=== PATIENT | male | born 1970 | race Caucasian/White ===

== ENCOUNTER 2022-05-28 07:43 | Inpatient (IN) ==
--- NOTE | 2022-05-03 10:19 | PAT Medication Instructions ---
Medication Instructions Date of Service May 03, 2022 Home Medications bethanechol chloride 25 mg tablet 25 mg PO TID PRN buspirone 10 mg tablet 10 mg PO BID methocarbamol 500 mg tablet 500 mg PO TID tamsulosin 0.4 mg capsule 0.4 mg PO QAM PRN trazodone 100 mg tablet 100 mg PO HS DO NOT take the morning of surgery bethanechol chloride 25 mg tablet 25 mg PO TID PRN methocarbamol 500 mg tablet 500 mg PO TID Take morning of surgery With a small sip of water, OTHERWISE NOTHING TO EAT OR DRINK AFTER MIDNIGHT: buspirone 10 mg tablet 10 mg PO BID tamsulosin 0.4 mg capsule 0.4 mg PO QAM PRN(if needed) Take evening before surgery buspirone 10 mg tablet 10 mg PO BID bethanechol chloride 25 mg tablet 25 mg PO TID PRN(if needed) methocarbamol 500 mg tablet 500 mg PO TID trazodone 100 mg tablet 100 mg PO HS Other Notes If you have any questions please call us at [phone] or [phone] or [phone] or [phone]
--- NOTE | 2022-05-04 13:08 | Anesthesiology Consultation ---
Date of Service May 04, 2022 Assessment & Plan (1) Encounter for pre-operative examination: Chart Review Chart Review: Acceptable Risk for Surgery and Patient seen in Pre Admission Testing -Pt questioning if he will be getting spinal cyst removal at time of lumbar surgery - did contact surgeon's office who will check with surgeon and follow up with patient Per PAT appt on 05/04/22, patient denies any recent travel or large group activities. Pt is NOT vaccinated for Covid. Will leave to surgeon's discretion if preop Covid testing needed. Educated on importance of using Covid precautions one week prior to surgery Teaching & Discussion Pre-Anesthesia Teaching/Discussion Notes: Instructed NPO after midnight before surgery,except medications with 15 cc of water. Medication instructions provided according to the PAT guidelines. History Surgery Operation Date: 05/28/22 07:45 Proposed Procedures p L3-L4 Decompression and Fusion, L4-L5 Hardware Removal, Spinal Cord Monitoring - Addison Farias, DO Height/Weight Height: 5 ft 8 in Weight: 94.9 kg Allergies Allergy/AdvReac Type Severity Reaction Status Date / Time morphine Allergy Vomiting Verified 05/03/22 07:52 mushroom Allergy throat Verified 05/03/22 07:52 swelling Medications Home Medications Medication Instructions Recorded Confirmed Last Taken bethanechol chloride 25 mg tablet 25 mg PO TID PRN Urinary Retention 05/03/22 05/03/22 Unknown buspirone 10 mg tablet 10 mg PO BID 05/03/22 05/03/22 Unknown methocarbamol 500 mg tablet 500 mg PO TID 05/03/22 05/03/22 Unknown tamsulosin 0.4 mg capsule 0.4 mg PO QAM PRN Urinary Retention 05/03/22 05/03/22 Unknown trazodone 100 mg tablet 100 mg PO HS 05/03/22 05/03/22 Unknown Past Medical History Medical History Anxiety and depression Hx of migraines occasionally Hx of urinary disorder 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 Hx of colonoscopy Hx of hernia repair Past Anesthesia History No Hx of Anesthesia Complications (WITH EXCEPTION TO PONV ) and No Family Hx of Anesthesia Complications History of PONV No Hx of Motion Sickness and History of PONV Social History Smoking Status: Never smoker Do You Dip or Chew Tobacco: Yes (1 can per day) Hx Alcohol Use: Yes (hx-none for 1 year) Hx Substance Use: No substance use type: does not use Review of Systems Snoring- no witnessed apnea- no hx of sleep study Patient denies chest pain, shortness of breath, dyspnea on exertion, reflux, cough, wheezing, palpitations. No hx of seizures, stroke, NV. No hx of blood clots or blood transfusions Physical Exam Vital Signs VITALS BP 132/89 P 91 TEMP 98.3 SP02 97% RESP 16 Constitutional no acute distress ENMT Mouth: no TMJ clicking Thyromental Distance: > or= 3.5 Finger Breadths (3.5) Mallampati Class: II Mouth / Teeth: 1. Broken tooth Neck neck extension not limited Respiratory normal respiratory effort; no respiratory distress Auscultation: lungs clear to auscultation bilaterally; no wheezes Cardiovascular Rate/Rhythm: regular rate and regular rhythm Heart Sounds: no murmur Vessels: no carotid bruit Musculoskeletal Spine: no pain with cervical ROM Extremities: extremities normal to inspection Psychiatric Orientation: alert Lab Results Anesthesia Preop Results Results Anesthesia Widget: WBC 7.58 K/ul (4.8-10.8) 05/04/22 Hgb 15.8 g/dl (14.0-18.0) 05/04/22 Hct 46.5 % (40.1-51.0) 05/04/22 Plt 291 K/uL (130-400) 05/04/22 Na 139 mmol/L (136-145) 05/04/22 K 3.8 mmol/L (3.5-5.1) 05/04/22 Cl 105 mmol/L (98-107) 05/04/22 CO2 28 mmol/L (21-32) 05/04/22 BUN 5 mg/dl (6-23) L 05/04/22 Creat 1.06 mg/dl (0.6-1.4) 05/04/22 Glucose Level 141 mg/dl (70-99(Fasting)) H 05/04/22 PT 10.5 Seconds (9.0-12.0) 05/04/22 PTT 24.5 Seconds (21.0-31.0) 05/04/22 INR 1.0 (0.9-1.1) 05/04/22 Urine Color Yellow 05/04/22 Urine Appearance Cloudy (Clear) A 05/04/22 Urine pH 7.0 (4.5-7.5) 05/04/22 Urine Specific Elk 1.011 (1.000-1.030) 05/04/22 Urine Protein Negative (Negative) 05/04/22 Urine Glucose (UA) Negative (Negative) 05/04/22 Urine Ketones Negative (Negative) 05/04/22 Urine Blood Negative (Negative) 05/04/22 Urine Nitrite Negative (Negative) 05/04/22 Urine Bilirubin Negative (Negative) 05/04/22 Urine Urobilinogen Negative (Negative) 05/04/22 Urine Leukocyte Esterase 3+ (Negative) H 05/04/22 Urine WBC (Auto) >30 /hpf (0-5) H 05/04/22 Urine RBC (Auto) 0-4 /hpf (0-4) 05/04/22 Urine Hyaline Casts (Auto) 5-10 /lpf (0-5) H 05/04/22 Urine Epithelial Cells (Auto) 0-5 /lpf (0-5) 05/04/22 Urine Bacteria (Auto) 3+ (Negative) H 05/04/22 Blood Type A Positive 05/04/22 Antibody Screen NEGATIVE 05/04/22 Testing Laboratory Results Surgeon's office informed of UA results- will leave to surgeon's discretion how to proceed Electrocardiogram Date: 05/04/22 Findings: + NSR @ (77bpm ) Normal EKG per cardio. Chest X-Ray Date: 05/04/22 Findings: + NAD COVID-19 Risk Screen Screening Information COVID-19 Screen Date: 05/04/22 Exposure 21 Days Family/Household +COVID Last 21 Days: No Exposure 10 Days Any COVID Exposure Last 10 Days: No Symptoms Last 10 Days Experienced COVID Sx Last 10 Days: No + COVID 0-90 Days COVID + in Last 0-90 Days: No Risk Plan COVID Risk Plan: No Risk Identified Patient Education COVID Preop Screening Education Complete: Yes
--- NOTE | 2022-05-27 11:58 | History & Physical Report ---
Date of Service May 27, 2022 Assessment & Plan (1) Neurogenic claudication due to lumbar spinal stenosis: Plan: due to weakness and severe stenosis recommending urgent decompression fusion L3- 4 with hardware removal L4-5 History of Present Illness Chief Complaint: back and leg pain Primary Care Provider: NO PCP 52 male severe bilateral leg pain with inablility to ambulate Allergies Allergy/AdvReac Type Severity Reaction Status Date / Time morphine Allergy Vomiting Verified 05/03/22 07:52 mushroom Allergy throat Verified 05/03/22 07:52 swelling Home Medications Medication Instructions Recorded Confirmed Type bethanechol chloride 25 mg tablet 25 mg PO TID PRN Urinary Retention 05/03/22 05/03/22 History buspirone 10 mg tablet 10 mg PO BID 05/03/22 05/03/22 History methocarbamol 500 mg tablet 500 mg PO TID 05/03/22 05/03/22 History tamsulosin 0.4 mg capsule 0.4 mg PO QAM PRN Urinary Retention 05/03/22 05/03/22 History trazodone 100 mg tablet 100 mg PO HS 05/03/22 05/03/22 History Past Med/Surg History Medical History Anxiety and depression Hx of migraines occasionally Hx of urinary disorder 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 Hx of colonoscopy Hx of hernia repair Social History Smoking Status: Never smoker Second Hand Exposure: Yes (as a child); Hx Alcohol Use: Yes (hx-none for 1 year) Hx Substance Use: No Preferred Language: Armenian Communication Ability: Effective Assembler Insulator Required: No Beliefs That Will Affect Care: None Current Living Situation: Spouse Feels Safe at Home: Yes Assistive Devices: Glasses Physical Exam Physical Exam: patient cannot stand for exam due to pain has weakness in both quads and with dorsiflexion 3+/5 sensory deficiits
[~2022-05-28 07:43] MED LIST: ACETAMINOPHEN 500 MG TAB PO SCH; CeleBREX 200 MG CAP PO SCH; GABAPENTIN 900 MG DOSE PO SCH; LR 15ML/HR IV SCH; ceFAZolin 2000MG 2,000 MG/15 ML SYR IV SCH
[2022-05-28] MEDS ORDERED: fentaNYL citrate 100 MCG/2 ML VIAL ONE (08:49)
[2022-05-28] MEDS ORDERED: MIDAZOLAM HCL 1 MG/ML 2ML VIAL ONE (08:49)
[2022-05-28] MEDS ORDERED: ePHEDrine sulfate 50 MG/ML AMP IV PRN (08:59)
[2022-05-28] MEDS ORDERED: ATROPINE SULFATE 0.1 MG/ML 10ML SYR IV PRN (08:59)
[2022-05-28] MEDS ORDERED: ONDANSETRON INJ 2 MG/ML 2 ML VIAL IV PRN ×2 (08:59→13:32)
[2022-05-28] MEDS ORDERED: HYDROmorphone INJ 1 MG/ML SYRINGE IV PRN (08:59)
--- NOTE | 2022-05-28 09:06 | History & Physical Bridge Note ---
Date of Service May 28, 2022 History & Physical Bridge Note I have examined the patient, reviewed the History & Physical and in the interval since the performance of the History & Physical I have noted the following changes of clinical significance: no changes noted
--- NOTE | 2022-05-28 09:07 | History & Physical Report ---
Date of Service May 28, 2022 Assessment & Plan (1) Neurogenic claudication due to lumbar spinal stenosis: History of Present Illness Chief Complaint: Back and leg pain Primary Care Provider: NO PCP This is a 52-year-old male presents with chronic persistent back and leg pain after failing course of nonoperative care is here for surgical invention. Allerg ies Allergy/AdvReac Type Severity Reaction Status Date / Time morphine Allergy Vomiting Verified 05/28/22 08:10 mushroom Allergy throat Verified 05/28/22 08:10 swelling Home Medications Medication Instructions Recorded Confirmed Type bethanechol chloride 25 mg tablet 25 mg PO TID PRN Urinary Retention 05/03/22 05/28/22 History buspirone 10 mg tablet 10 mg PO BID 05/03/22 05/28/22 History methocarbamol 500 mg tablet 500 mg PO TID 05/03/22 05/28/22 History tamsulosin 0.4 mg capsule 0.4 mg PO QAM PRN Urinary Retention 05/03/22 05/28/22 History trazodone 100 mg tablet 100 mg PO HS 05/03/22 05/28/22 History Past Med/Surg History Medical History Anxiety and depression Hx of migraines occasionally Hx of urinary disorder 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 Hx of colonoscopy Hx of hernia repair Social History Smoking Status: Never smoker Second Hand Exposure: Yes (as a child); Do You Dip or Chew Tobacco: Yes (1 can per day); Tobacco Cessation Education Requested by Patient: No Hx Alcohol Use: Yes (hx-none for 1 year) Hx Substance Use: No Preferred Language: Burundian Communication Ability: Effective Relationship Assoc Required: No Beliefs That Will Affect Care: None Current Living Situation: Spouse Other Information That Helps Us Care for You: No Feels Safe at Home: Yes Safety Concerns: Feels Safe At This Time Assistive Devices: Glasses Assistive Devices Comment: reading glasses Physical Exam Physical Exam: Patient is alert and oriented Heart regular rhythm Lungs clear Results & Data Results & Data ([facility]) Vital Signs (Past 12 Hours) Vital Signs Temp Pulse Resp BP Pulse Ox O2 Del Method 05/28/22 08:14 36.6 C 79 20 130/95 98 Room Air
[2022-05-28] MEDS ORDERED: ONDANSETRON INJ 2 MG/ML 2 ML VIAL ONE (09:14)
[2022-05-28] MEDS ORDERED: LIDOCAINE 2% MPF LOCAL 5 ML VIAL INFIL ONE (09:14)
[2022-05-28] MEDS ORDERED: PROPOFOL IV EMULSION 10 MG/ML 20 ML VIAL IV ONE (09:14)
[2022-05-28] MEDS ORDERED: DEXAMETHASONE SOD INJ 4 MG/ML VIAL ONE (09:14)
[2022-05-28] MEDS ORDERED: ROCURONIUM BROMIDE 10 MG/ML 5 ML VIAL IV ONE (09:14)
[2022-05-28] MEDS ORDERED: NEOSTIGMINE METHYLSULFATE 1 MG/ML 10ML VIAL ONE (09:15)
[2022-05-28] MEDS ORDERED: GLYCOPYRROLATE 0.2 MG/ML VIAL ONE (09:15)
[2022-05-28] MEDS ORDERED: BUPIVACAINE/EPINEPHRINE 0.25% 1:200,000 30 ML VIAL ONE (09:26)
[2022-05-28] MEDS ORDERED: ceFAZolin 330 MG/ML 1 GM VIAL ONE (09:27)
[2022-05-28] MEDS ORDERED: HYDROmorphone INJ 2 MG/ML SYR/VIAL ONE ×2 (10:06→10:12)
[2022-05-28] MEDS ORDERED: FLOSEAL HEMOSTATIC MATRIX 10ML TOP ONE (10:26)
[2022-05-28] MEDS ORDERED: ePHEDrine sulfate 50 MG/ML SYR ONE (11:01)
--- NOTE | 2022-05-28 11:42 | Operative Report ---
Post Operative Report Pre & Post Diagnosis Operation Date: 05/28/22 09:35 Pre-Op Diagnosis: Lumbar spinal stenosis with neurogenic claudication Post-Op Diagnosis: Same I identified the patient and participated in the time-out.: Yes Procedure Operation Date: 05/28/22 09:35 Actual Procedures #1 removal of posterior instrumentation L4-5 L5-S1. #2 exploration of fusion L4-5 L5-S1. #3 lumbar decompression with bilateral medial facetectomies and foraminotomies L2-L3 L3-L4. #4 posterior spinal fusion L3-L4. #5 placement posterior instrumentation L3-L5. #6 interbody fusion L3-L4. 7 placement of Spira 14 x 26 mm cage at L3-L4. 8 placement locally harvested morselized autograft and posterior gutters per #9 placement of I factor model V toss interbody space and posterior lateral gutters. Surgeon Addison Farias, Vegetable Tester None Estimated Blood Loss 100 Findings See Below The patient is 5 foot 8 weighing over 94 kg with a BMI in excess of 31. Patient's body habitus did contribute to significant technical difficulty required deeper retractors and longer instruments in order to perform his procedure. This at least 50% increased operative time. Specimens None Indications This is a 52-year-old male who presents above-mentioned diagnosis after failed course of nonoperative care is here for surgical invention. Description of Procedure Patient is met with identified informed consent obtained. Patient was then taken to the operative suite underwent a patient placed in a prone position the Ocate table top Black frame. All bony prominences well-padded eyes inspected to ensure no external pressure placed monitor at this point the lumbar spine was prepped and draped in a sterile fashion. Sharp dissection with the assistance of bradycardia was performed down to and exposing the lamina transverse processes of L3 and instrumentation at L4-L5 and S1 levels bilaterally. Then proceeded with the hardware bilaterally explore the fusion mass noting it to be mature and intact. Then performed a complete laminectomy of L3 partial negative L2 including bilateral medial facetectomies foraminotomies addressing severe spinal stenosis. Pedicle screws then placed at L3 L4-5 bilaterally with assistance of fluoroscopy and the properly sized la placed. By way of entrance foraminal approach and left pleat discectomy of L3-L4 was performed endplates curetted to subcortical bleeding bone and a 14 x 26 mm spiral cage with I factor tapped in position. The rods then locked in final position bilaterally. The transverse processes of L3-L4 burred to subcortically bone. I factor model V toss and locally harvested morselized autograft was placed in the posterior gutters. 15 round SHELLEY drain inserted. The incision was then closed with 1 Vicryl the fascia 2-0 Vicryl subcutaneously and 4 Monocryl for final skin closure. Steri-Strips dressings placed. Patient waken taken to PACU stable condition. Please note spinal cord monitoring utilized at the procedure no changes noted. I attest to the content of the Intraoperative Record and any orders documented therein. Any exceptions are noted below.
--- NOTE | 2022-05-28 11:57 | Fluoroscopy Report ---
FL lumbar spine 2-3V CLINICAL HISTORY: L3-L4 DECOMPRESSION/ FUSION COMPARISON STUDY: None. FLUOROSCOPY TIME: 10 seconds. FINDINGS: 2 fluoroscopic spot images of the lumbar spine demonstrate posterior decompression fusion f rom L3 through L5 with pedicle screws and rods. Hardware appears intact.. IMPRESSION: Fluoroscopic assistance provided for L3-L5 posterior decompression and fusion. ACT 112: Negative or not required by law. Electronically signed by: Abdulkadir Quijano M.D. 05/28/2022 11:55 AM
[2022-05-28] MEDS: fentaNYL citrate 100 MCG/2 ML VIAL IV PRN ×4 (12:09→12:24)
--- NOTE | 2022-05-28 12:31 | Anesthesiology Progress Note ---
Date of Service May 28, 2022 Anesthesia Post Procedure Vital Signs Vital Signs: Temp Pulse Pulse Resp BP Pulse Ox O2 Del Method 05/28/22 12:25 85 11 L 127/89 98 Nasal Cannula 05/28/22 12:15 67 14 129/87 99 Nasal Cannula 05/28/22 12:05 81 20 146/92 H 98 Nasal Cannula 05/28/22 11:55 98 H 17 129/97 100 Oxymask 05/28/22 11:48 36.1 C L 96 H 19 148/87 H 99 Oxymask 05/28/22 08:14 36.6 C 79 20 130/95 98 Room Air O2 Flow Rate 05/28/22 12:25 2 05/28/22 12:15 2 05/28/22 12:05 2 05/28/22 11:55 10 05/28/22 11:48 10 05/28/22 08:14 Pain Intensity Bilateral Back: Pain Intensity: 5 Back: Pain Intensity: 5 Transfer of Care Handoff Completed per policy Notes Mental Status: alert / awake / arousable and participated in evaluation Patient Amnestic to Procedure: Yes Nausea / Vomiting: adequately controlled Pain: adequately controlled Airway Patency, RR, SpO2: stable & adequate BP & HR: stable & adequate Hydration State: stable & adequate Anesthetic Complications: no major complications apparent and Pt Satisfied with anesthetic care
[2022-05-28] MEDS ORDERED: MAGNESIUM HYDROXIDE SUSP 30 ML UDC PO PRN (13:32)
[2022-05-28] MEDS ORDERED: HYDROmorphone INJ 0.5 MG/0.5 ML SYR IV PRN (13:32)
[2022-05-28] MEDS ORDERED: FAMOTIDINE 20 MG TAB PO PRN (13:32)
[2022-05-28] MEDS ORDERED: TAMSULOSIN HCL 0.4 MG CAP PO PRN (13:32)
[2022-05-28] MEDS ORDERED: ACETAMINOPHEN 500 MG TAB PO PRN (13:32)
[2022-05-28] MEDS ORDERED: PROMETHAZINE HCL 12.5 MG in SODIUM CHLORIDE 0.9% 50 ML IV PRN (13:32)
[2022-05-28] MEDS ORDERED: ALUMINUM/MAGNESIUM SUSP 30 ML UDC PO PRN (13:32)
[2022-05-28] MEDS ORDERED: METOCLOPRAMIDE HCL INJ 5 MG/ML 2 ML VIAL IV PRN (13:32)
[2022-05-28] MEDS ORDERED: DO NOT ADMINISTER FLU VACCINE PRN (13:32)
[2022-05-28] MEDS ORDERED: bisacodyL 10 MG SUPP PR PRN (13:32)
[2022-05-28] MEDS ORDERED: SOD PHOSPHATE/SOD BIPHOSPHATE ENEMA 132 ML BTL PR PRN (13:32)
[2022-05-28] MEDS ORDERED: NALOXONE HCL 0.4 MG/1 ML VIAL/CARP IV PRN (13:32)
[2022-05-28] MEDS ORDERED: diphenhydrAMINE Capsule 25 MG CAP PO PRN (13:32)
[2022-05-28] MEDS ORDERED: LORazepam 0.5 MG TAB PO PRN (13:32)
[2022-05-28] MEDS ORDERED: LORazepam 2 MG/1 ML VIAL IV PRN (13:32)
[2022-05-28] MEDS ORDERED: hydrOXYzine HCl 25 MG TAB PO PRN (13:32)
[2022-05-28] MEDS ORDERED: ONDANSETRON 4 MG OD TAB PO PRN (13:32)
[2022-05-28] MEDS ORDERED: DO NOT ADMINISTER PNEUMOCOCCAL VACCINE PRN (13:32)
[2022-05-28] MEDS ORDERED: ACETAMINOPHEN 1,000 MG/100 ML VIAL IV PRN (13:32)
[2022-05-28] MEDS ORDERED: BETHANECHOL CHL 25 MG TAB PO PRN (13:32)
[2022-05-28] MEDS: LACTATED RINGER'S 1,000 ML IV SCH ×2 (14:26→20:44)
[2022-05-28] MEDS: HYDROmorphone INJ 1 MG/ML SYRINGE IV PRN ×2 (14:27→20:05)
--- NOTE | 2022-05-28 14:42 | Consultation ---
Date of Consultation May 28, 2022 Assessment & Plan (1) Neurogenic claudication due to lumbar spinal stenosis: (2) Status post lumbar surgery: Post op day# 0 S/P removal instrumentation, decompression and fusion L2-L4 by Dr Farias EBMeena#100ml -pain management per ortho -wound management per ortho -PT/OT as appropriate -DVT prophylaxis per ortho -incentive spirometry -monitor H&H for acute blood loss anemia; pre-op Hgb: 15 (3) Anxiety and depression: (4) Insomnia: -Continue buspirone, trazodone (5) Hx of urinary disorder: History urinary retention. Follows with urology -Continue tamsulosin, bethanechol DVT Prophylaxis -SCDs per ortho Disposition per primary service Follows with Dr Mitchell in [place] for routine care Pt was seen and care coordinated with Dr Skaggs. See addendum Thank you for this consultation. We will follow the patient with you during their hospital stay. You can reach a member of the [facility]ist Team 13/12 via [employer] I spent total of 45 minutes of reviewing notes, labs, images, medications, coord inating, documenting, and providing care for this patient excluding time spent in the performance of separately Supervising Physician Co-Signing Physician Notes Attending addendum: The patient was seen and examined in medical floor Is a status post L3-L4 decompression and fusion Remains drowsy secondary to use of anesthetics and pain medication Minimal pain at back with numbness persisting in the left lower leg On examination Hemodynamically stable but remains very drowsy Chest-clear to auscultate bilaterally Heart-S1, S2 regular Abdomen-benign Extremities-negative for any edema His labs, EKG and imaging studies reviewed Status post lumbar surgery with stable medical conditions as above Agree with assessment and plan as outlined above by MABEL Gruber Dr History of Present Illness Requesting Physician: Dr Farias Reason for Consultation: Dr Farias Attending Physician: Addison Farias DO History of Present Illness Patient is 52 y/o M with PMH chronic back pain, insomnia, HLD seen in medical consultation s/p removal instrumentation, decompression and fusion L2-L4 today by Dr Farias. Post op patient reports some low back pain and was just given pain medication. Reports left leg paresthesias. Denies nausea, vomiting, CP, SOB. Tolerated liquids for lunch. Last BM yesterday. Has Ca catheter in place. Denies fever/chills, diaphoresis, BUCKNER, dizziness, vision changes, neck pain, CP, SOB, palpitations, cough, sore throat, choking, rhinorrhea, abdominal pain, extremity edema, rashes, dysuria, hematuria. Allergies Allergy/AdvReac Type Severity Reaction Status Date / Time morphine Allergy Vomiting Verified 05/28/22 08:10 mushroom Allergy throat Verified 05/28/22 08:10 swelling Home Medications Medication Instructions Recorded Confirmed Type bethanechol chloride 25 mg tablet 25 mg PO TID PRN Urinary Retention 05/03/22 05/28/22 History buspirone 10 mg tablet 10 mg PO BID 05/03/22 05/28/22 History methocarbamol 500 mg tablet 500 mg PO TID 05/03/22 05/28/22 History tamsulosin 0.4 mg capsule 0.4 mg PO QAM PRN Urinary Retention 05/03/22 05/28/22 History trazodone 100 mg tablet 100 mg PO HS 05/03/22 05/28/22 History Patient History Medical History Anxiety and depression Hx of migraines occasionally Hx of urinary disorder 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 Hx of colonoscopy Hx of hernia repair Family History (Updated 05/28/22 @ 15:03 by Balbina Rossi PA-C) Other Coronary heart disease Dyslipidemia Hypertension Social History (Updated 05/28/22 @ 15:18 by Balbina Rossi PA-C) Smoking Status: Never smoker Second Hand Exposure: Yes (as a child); Do You Dip or Chew Tobacco: Yes (1 can per day); Tobacco Cessation Education Requested by Patient: No Hx Alcohol Use: Yes (hx-none for 1 year) Hx Substance Use: No Preferred Language: Ugandan Communication Ability: Effective Case Manager Required: No Beliefs That Will Affect Care: None Current Living Situation: Spouse Other Information That Helps Us Care for You: No Feels Safe at Home: Yes Safety Concerns: Feels Safe At This Time Assistive Devices: Glasses Assistive Devices Comment: reading glasses Review of Systems Review of Systems: All systems reviewed & are unremarkable except as noted in HPI & below Physical Exam Physical Exam: General: no distress, WDWN Head: normocephalic, atraumatic Eyes: conjunctiva non-injected, anicteric ENT: normal inspection external ears, nose, mucous membranes moist Neck: supple, trachea midline Lungs: clear, no respiratory distress, no wheezing/rhonchi/rales CV: RRR, no pretibial edema Abd: normal BS, soft, non-tender Back: +SHELLEY drain with serosanguineous drainage Ext: no cyanosis, no calf tenderness; able to move toes, unable to pedal pushes and pulls at this time, sensation to light touch intact, distal pulses intact Neuro: A&O x 3, no focal deficits noted, normal affect Skin: warm, dry Results & Data ([facility]) Vital Signs (Past 12 Hours) Vital Signs Temp Pulse Pulse Resp BP Pulse Ox O2 Del Method 05/28/22 14:28 36.5 C 107 H 18 122/81 93 Room Air 05/28/22 13:18 36.5 C 78 130/79 93 Room Air 05/28/22 12:50 78 15 129/72 97 Nasal Cannula 05/28/22 12:35 36.4 C L 67 12 131/80 97 Nasal Cannula 05/28/22 12:25 85 11 L 127/89 98 Nasal Cannula 05/28/22 12:15 67 14 129/87 99 Nasal Cannula 05/28/22 12:05 81 20 146/92 H 98 Nasal Cannula 05/28/22 11:55 98 H 17 129/97 100 Oxymask 05/28/22 11:48 36.1 C L 96 H 19 148/87 H 99 Oxymask 05/28/22 08:14 36.6 C 79 20 130/95 98 Room Air O2 Flow Rate 05/28/22 14:28 05/28/22 13:18 05/28/22 12:50 2 05/28/22 12:35 2 05/28/22 12:25 2 05/28/22 12:15 2 05/28/22 12:05 2 05/28/22 11:55 10 05/28/22 11:48 10 05/28/22 08:14
[2022-05-28] MEDS: METHOCARBAMOL 500 MG TABLET PO SCH ×2 (14:59→20:41)
[2022-05-28] MEDS: oxyCODONE HCL IR 5 MG TAB (IMMEDIATE RELEASE) PO PRN ×2 (17:38→23:28)
[2022-05-28] MEDS: ceFAZolin 2000MG 2,000 MG/15 ML SYR IV SCH (17:39)
[2022-05-28] MEDS: traMADol HCL 50 MG TABLET PO PRN (20:04)
[2022-05-28] MEDS: busPIRone 5 MG TAB PO SCH (20:40)
[2022-05-28] MEDS: DOCUSATE SODIUM/SENNA 50/8.6MG TAB PO SCH (20:42)
[2022-05-28] MEDS: traZODone HCL 100 MG TAB PO SCH (20:42)
[2022-05-29] MEDS: ceFAZolin 2000MG 2,000 MG/15 ML SYR IV SCH (01:59)
[2022-05-29] MEDS: oxyCODONE HCL IR 5 MG TAB (IMMEDIATE RELEASE) PO PRN ×4 (02:58→20:30)
[2022-05-29] MEDS: LACTATED RINGER'S 1,000 ML IV SCH ×4 (03:40→22:09)
[2022-05-29] MEDS: traMADol HCL 50 MG TABLET PO PRN (04:21)
[2022-05-29] MEDS: POLYETHYLENE (MIRALAX) 17 GM PACK PO SCH ×4 (05:34→23:38)
[2022-05-29 06:01] LABS: Basophils # (auto) 0.06 K/uL (0-0.2); Basophils % (auto) 0.6 %; Eosinophils # (auto) 0.42 K/uL (0-0.50); Eosinophils % (auto) 4.5 %; Hematocrit (blood only) 35.2 % (40.1-51.0); Hemoglobin 12.3 g/dl (14.0-18.0); Immature Granulocytes # (auto) 0.02 K/uL (0.00-0.02); Immature Granulocytes % (auto) 0.2 %; Lymphocytes # (auto) 2.24 K/uL (1.2-3.4); Lymphocytes % (auto) 24.1 %; Mean Corpuscular Hemoglobin 31.5 pg (25.0-34.0); Mean Corpuscular Hgb Conc 34.9 g/dL (32.0-36.0); Monocytes # (auto) 0.84 K/uL (0.24-0.82); Neutrophils # (auto) 5.72 K/uL (1.4-6.5); Neutrophils % (auto) 61.6 %; Platelet Count 215 K/uL (130-400); RDW Coefficient of Variation 13.2 % (11.5-14.5); RDW Standard Deviation 43.5 fL (36.4-46.3); Red Blood Count 3.91 M/uL (4.63-6.08)
[2022-05-29 06:25] LABS: BUN Creatinine Ratio 7.8 (10-20); Calcium 7.4 mg/dl (8.5-10.1); Creatinine Clr Calc Pharmacy 82.7 ml/min; Est GFR (African American) 83.7 ml/min; Est GFR (Non-African American) 72.3 ml/min; Potassium 3.5 mmol/L (3.5-5.1)
[2022-05-29] MEDS: HYDROmorphone INJ 1 MG/ML SYRINGE IV PRN ×4 (08:08→22:08)
--- NOTE | 2022-05-29 08:20 | Orthopedic Progress Note ---
Date of Service May 29, 2022 Assessment & Plan (1) Neurogenic claudication due to lumbar spinal stenosis: Plan: At this time initiate physical therapy monitor his SHELLEY operatively discharge home in the next few days. Admission and Anticipated Discharge Date Admission Date: May 28, 2022 Subjective Back pain controlled leg pain improved Physical Exam Physical Exam: Patient is constricted testing. Peers comfortable. Results & Data ([facility]) Vital Signs (Past 12 Hours) Vital Signs Temp Pulse Resp BP Pulse Ox O2 Del Method 05/29/22 03:24 36.6 C 75 18 100/66 96 Room Air 05/28/22 22:55 36.5 C 67 15 100/59 L 96 Room Air
[2022-05-29] MEDS: busPIRone 5 MG TAB PO SCH ×2 (09:08→20:32)
[2022-05-29] MEDS: TAMSULOSIN HCL 0.4 MG CAP PO SCH (09:08)
[2022-05-29] MEDS: METHOCARBAMOL 500 MG TABLET PO SCH ×3 (09:09→20:31)
[2022-05-29] MEDS: dexAMETHasone 6 MG in SYRINGE 0 ML IV SCH (09:09)
--- NOTE | 2022-05-29 15:43 | Hospitalist Progress Note ---
Date of Service May 29, 2022 Assessment & Plan (1) Neurogenic claudication due to lumbar spinal stenosis: (2) Status post lumbar surgery: Plan: Likely acute blood loss anemia/postoperative Post op day# 1 S/P removal instrumentation, decompression and fusion L2-L4 by Dr Farias EB#100ml -pain management per ortho -wound management per ortho -PT/OT as appropriate -DVT prophylaxis per ortho -incentive spirometry -monitor H&H for acute blood loss anemia; pre-op Hgb: 15, postop hemoglobin 12.5. H&H in AM. (3) Anxiety and depression: (4) Insomnia: Plan: -Continue buspirone, trazodone (5) Hx of urinary disorder: Plan: History urinary retention. Follows with urology -Continue tamsulosin, bethanechol DVT Prophylaxis -SCDs per ortho Disposition per primary service Follows with Dr Mitchell in [place] for routine care Thank you for this consultation. We will follow the patient with you during their hospital stay. You can reach a [facility]12 via [employer] Admission and Anticipated Discharge Date Admission Date: May 28, 2022 Subjective Patient seen and examined at bedside as a follow-up of neurogenic claudication due to lumbar spinal stenosis status post lumbar surgery by Dr. Farias. Patient was lying in bed, on room air, NAD, reports no new acute event overnight, reports eating okay, no bowel movement yet, reports moving gas, reports some low back pain at operative site, denies headache or dizziness or chest pain or sore throat or other review of symptoms. Physical Exam Physical Exam: GENERAL: Alert and oriented x3. NAD, on RA. HEENT: No pallor, no icterus. Pupils equal, round and reactive to light. Oral mucosa moist. NECK: No JVD, no neck masses. HEART: S1 and S2 heard. Regular rate and rhythm. No murmur, no gallop. RESPIRATORY SYSTEM: Normal AP diameter. No accessory muscle use. No wheezing, no crackles. ABDOMEN: Soft, bowel sounds present, nontender, no distention. CENTRAL NERVOUS SYSTEM: No facial droop. Speech is clear. Obeys simple commands. Moves extremities. EXTREMITIES: No edema, no erythema seen. SCDs on. Lower back with clean dressing without soakage. SHELLEY drain with moderate serosanguineous collection noted. Results & Data Results & Data ([facility]) Vital Signs (Past 12 Hours) Vital Signs Temp Pulse Resp BP Pulse Ox O2 Del Method 05/29/22 14:32 36.8 C 91 H 17 133/83 92 Room Air 05/29/22 08:31 36.1 C L 84 22 120/71 97 Room Air
[2022-05-29] MEDS: DOCUSATE SODIUM/SENNA 50/8.6MG TAB PO SCH (20:31)
[2022-05-29] MEDS: traZODone HCL 100 MG TAB PO SCH (20:32)
[2022-05-30] MEDS: oxyCODONE HCL IR 5 MG TAB (IMMEDIATE RELEASE) PO PRN ×2 (02:25→12:32)
[2022-05-30] MEDS: HYDROmorphone INJ 1 MG/ML SYRINGE IV PRN ×2 (02:26→07:40)
[2022-05-30] MEDS: LACTATED RINGER'S 1,000 ML IV SCH ×2 (05:01→06:52)
[2022-05-30] MEDS ORDERED: Nursing to Pharmacy Communication SCH (05:15)
[2022-05-30 07:15] LABS: Hematocrit (blood only) 36.2 % (40.1-51.0); Hemoglobin 12.4 g/dl (14.0-18.0)
[2022-05-30] MEDS: dexAMETHasone 6 MG in SYRINGE 0 ML IV SCH (07:41)
[2022-05-30] MEDS: busPIRone 5 MG TAB PO SCH (08:58)
[2022-05-30] MEDS: METHOCARBAMOL 500 MG TABLET PO SCH (08:58)
[2022-05-30] MEDS: TAMSULOSIN HCL 0.4 MG CAP PO SCH (08:59)
[2022-05-30] MEDS ORDERED: oxyCODONE IR HOME PACK PO ONE (12:02)
--- NOTE | 2022-05-30 12:06 | Discharge Summary ---
Date of Service May 30, 2022 Admission HPI Per Admitting Provider This is a 52-year-old male presents with chronic persistent back and leg pain after failing course of nonoperative care is here for surgical invention. Principal Diagnosis Lumbar spinal stenosis with neurogenic claudication Discharge Data Allergies Allergy/AdvReac Type Severity Reaction Status Date / Time morphine Allergy Vomiting Verified 05/28/22 08:10 mushroom Allergy throat Verified 05/28/22 08:10 swelling Consultations 05/28/22 13:32 Consult Hospitalist Routine Procedures Performed Operation Date: 05/28/22 09:35 Actual Procedures p L3-L4 Decompression and Fusion, Spinal Cord Monitoring(Not Applicable) - Addison Farias DO s L4-S1 Hardware Removal,(Not Applicable) - Addison Farias DO Ordered Studies 05/28/22 [place] lumbar spine 2-3V Routine Hospital Course (1) Neurogenic claudication due to lumbar spinal stenosis: Patient with lumbar decompression fusion tolerated all data orthopedic for postop labor postop day 1 is up and ambulating progressed to postop day 2. Pain well controlled. SHELLEY drain decreased probably. Safely discharged home. Discharge orders instructions found in chart for further review. Total Time Total Time Spent Total Time Spent (In Minutes): 20 minutes Discharge Plan Discharge Items Patient Disposition: Home - Self-Care Reason For Visit: Spinal Stenosis, Lumbar Region without Neurogenic Discharge Diagnosis: Lumbar spinal stenosis with neurogenic claudication Activity: As commented below Non-emergency contact: Primary Care Provider Call non-emergency contact if: you have any medication questions Follow-up/Referrals: PCP,NO [Physician] - (PATIENT SEES DR HEAVENLY MITCHELL MD AT [facility] IN [place], [place]. IT [facility].) Diet: Regular Addtl Attending Provider Instructions: ACTIVITY RECOMMENDATIONS: SELF CARE INSTRUCTIONS AFTER THORACIC/LUMBAR FUSIONS 1. You may walk to your tolerance. It is good exercise for your legs and back. Expect some back and intermittent leg aches and pains. 2. You may perform "counter-top" level activities (make a sandwich, floyd with a project, etc.). 3. No bending or lifting of more than 10 pounds or back twisting of any nature (roll like a log when turning in bed). 4. You may ride in a car for 20-30 minutes at a time. No driving until after your first visit with your doctor. 5. Frequent changes of position and restricting sitting to 30 minutes at a time will help limit the amount of back spasms and stiffness you may experience. 6. You may discontinue the use of ambulatory aids (cane, crutches, etc.) once your strength and confidence allow. 7. You may open hearth door liner the shower and let water strike your incision when you arrive home at least once daily. Do not take a tub bath, sit in a hot tub or go into a swimming pool until after your first recheck in the office. SPECIAL CARE INSTRUCTIONS: VERY IMPORTANT TO READ AND REVIEW A. Your surgical incision has been closed with a cosmetic suture under the skin that will dissolve in about 6 weeks. In 14 days, you can use a pair of clean scissors and cut the suture that is left outside of the skin at the ends of your incision. 1. The small skin tapes can be removed 7 days after surgery if they have not fallen off by that point. 2. You may keep the wound open to air as much as possible to promote healing after post-op day number 5 unless told otherwise by your doctor. 3. If you think the wound looks like it is becoming infected (redness or worsening drainage) and/or you are experiencing fever, chill or worsening back pain and muscle spasms, contact the office so that we may evaluate you as soon as possible. B. Complications are uncommon, but please contact us if you have any signs or symptoms of: 1. wound infection (fever higher than 102.5 degrees F, redness, separation of wound, drainage, or increasing pain from the incision) 2. blood clots in legs (pain, swelling, redness and warmth in legs) 3. urinary tract infection (fever higher than 102.5 degrees F, burning upon urination or increased frequency of urination) 4. nerve problems (inability to walk on your toes or heels, numbness, loss of bowel or bladder control) 5. any other symptoms that concern you C. Please call the office at if you have any concerns or questions about your operation or recovery. D. No smoking! Smoking drastically decreases the chance of a solid fusion. E. Do not take any anti-inflammatory medications (Indocin, Advil, Motrin, Aspirin, Naprosyn, etc.) as these may inhibit the chance of a solid fusion. Tylenol is okay to take for pain. MANAGING PAIN AFTER SPINAL SURGERY 1. Narcotic medication is intended for short-term use and will be provided for surgical pain. Surgical pain usually lasts for a period of 4-6 weeks. Narcotic medication includes Percocet, Vicodin, Darvocet, Tylenol #3 or Lortab. 2. Longer-term pain is more appropriately treated with non-narcotic medication such as Tylenol ES. 3. Muscle spasm is not appropriately treated with narcotics. Muscle relaxers such as Soma, Flexeril or Skelaxin can be used along with Tylenol ES. 4. Remember that we all live with some "aches and pains". This is not unusual or uncommon after an injury or as we get older. a. Back pain is expected and may include muscle spasms for 4 to 6 weeks after surgery. The pain should gradually improve. If the pain worsens for no apparent reason, please contact the office. b. Intermittent leg pain may also be experienced and should not be concerned about unless it worsens for no apparent reason. If so, please contact the office. 5. We will provide appropriate medication within the normal guidelines of their prescribed use. We will also be very cautious and aware of potential abuse and extended duration of patients' medication needs. a. Pain medications are for your comfort and to assist with sleep and rest so that the tissue can heal. They are not provided in order to return to normal activity and should not be used through the day. To do so or worsening pain at night can result from ongoing tissue damage and development of tolerance to the prescribed medicine. 6. Please allow 2-3 days to process refills. Prescriptions will not be mailed but must be picked up at the office. FOLLOW UP VISIT: Keep your scheduled follow-up appointment. Any questions, please call the office at . Pending Studies at Discharge: No Stand-Alone Forms: My [employer], Smoking Cessation Medications and DC Order Prescriptions: New tramadol 50 mg tablet 50 mg PO Q6H PRN (Reason: pain, moderate) Qty: 30 0RF oxycodone 5 mg tablet 5 mg PO Q6H PRN (Reason: pain, severe) Qty: 30 0RF Continued methocarbamol 500 mg Tablet 500 mg PO TID bethanechol chloride 25 mg Tablet 25 mg PO TID PRN (Reason: Urinary Retention) tamsulosin 0.4 mg Capsule 0.4 mg PO QAM PRN (Reason: Urinary Retention) trazodone 100 mg Tablet 100 mg PO HS buspirone 10 mg Tablet 10 mg PO BID Discharge Orders: Discharge Order (Routine); Ordered 05/30/22 Ordered By: Addison Farias Admission Data Admit Date/Time: 05/28/22 11:49 Attending Provider: Addison Farias Admit Provider: Addison Farias Primary Care Provider: Heavenly Mitchell Other Providers: Ariana Barnes ; Jimmy Ford
--- NOTE | 2022-05-30 14:17 | Hospitalist Progress Note ---
Date of Service May 30, 2022 Assessment & Plan (1) Neurogenic claudication due to lumbar spinal stenosis: (2) Status post lumbar surgery: Plan: Likely acute blood loss anemia/postoperative Post op day# 2 S/P removal instrumentation, decompression and fusion L2-L4 by Dr Farias EB#100ml -pain management per ortho -wound management per ortho -PT/OT as appropriate -DVT prophylaxis per ortho -incentive spirometry -monitor H&H for acute blood loss anemia; pre-op Hgb: 15, postop hemoglobin 12.4. stable. (3) Anxiety and depression: (4) Insomnia: Plan: -Continue buspirone, trazodone (5) Hx of urinary disorder: Plan: History urinary retention. Follows with urology -Continue tamsulosin, bethanechol DVT Prophylaxis -SCDs per ortho Disposition per primary service Follows with Dr Mitchell in [place] for routine care Thank you for this consultation. We will follow the patient with you during their hospital stay. You can reach a member of the [facility]12 via [employer] Admission and Anticipated Discharge Date Admission Date: May 28, 2022 Subjective Patient seen and examined at bedside as a follow-up of neurogenic claudication due to lumbar spinal stenosis status post lumbar surgery by Dr. Farias. Patient was lying in bed, on room air, NAD, reports no new acute event overnight, reports eating okay, moved bowel, reports some gradually improving low back pain and LLE pain, denies headache or dizziness or chest pain or sore throat or other review of symptoms. Physical Exam Physical Exam: GENERAL: Alert and oriented x3. NAD, on RA. HEENT: No pallor, no icterus. Pupils equal, round and reactive to light. Oral mucosa moist. NECK: No JVD, no neck masses. HEART: S1 and S2 heard. Regular rate and rhythm. No murmur, no gallop. RESPIRATORY SYSTEM: Normal AP diameter. No accessory muscle use. No wheezing, no crackles. ABDOMEN: Soft, bowel sounds present, nontender, no distention. CENTRAL NERVOUS SYSTEM: No facial droop. Speech is clear. Obeys simple commands. Moves extremities. EXTREMITIES: No edema, no erythema seen. SCDs on. Lower back with clean dressing without soakage. SHELLEY drain with minimal serosanguineous collection noted. Results & Data Results & Data ([facility]) Vital Signs (Past 12 Hours) Vital Signs Temp Pulse Pulse Resp BP BP Pulse Ox 05/30/22 12:14 36.5 C 78 85 16 129/77 100/64 96 05/30/22 07:47 36.5 C 85 16 129/77 96 O2 Del Method 05/30/22 12:14 05/30/22 07:47 Room Air
== END 2022-05-30 13:29 | disposition home or self-care (01) | DRG 454 ==
LOC: ASU 07:43 → 3E 11:49